=== PATIENT | male | born 1980 | race Caucasian/White ===

== ENCOUNTER 2023-04-01 18:31 | Emergency (ER) | payer BC, SELFPAY ==
[2023-04-01] VITALS (29 sets, daily range): BP systolic 128; BP diastolic 89; PULSE 76–115; RESP 7–24; TEMP 36.6; O2SAT 85–100; BMI 26.5
--- NOTE | 2023-04-01 18:59 | ECG_ITS ---
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
--- NOTE | 2023-04-01 19:01 | ED.GENADUL1 ---
Documented by User: Malena Bettencourt 04/01/23 22:04 HPI - General Adult General Chief complaint: Overdose Stated complaint: WITHDRAWAL, ANXIETY Time Seen by Provider: 04/01/23 18:59 Source: patient Source information: patient Mode of arrival: walk-in Limitations: no limitations History of Present Illness HPI narrative: 42 year old male presents to the ED for substance abuse. He reports using cocaine and OxyContin today; he reported snorting OxyContin in the parking lot prior to coming inside. His brother brought him in today. He does drink alcohol; denies use today. He has hx substance abuse. States he was at a drug [facility] alcohol treatment center 2 weeks ago; he was sober for 3 days. He reports feeling anxious at this time. Reports chest pain at this time. Denies fever, SOB, emesis, diarrhea, dizziness. Rates his pain 4/10 at this time. Location: Reports chest; Denies head, neck, back or abdomen Related Data Allergies Allergy/AdvReac Type Severity Reaction Status Date / Time No Known Drug Allergies Allergy Verified 04/01/23 18:56 Review of Systems ROS Constitutional Denies: fever, chills or fatigue Ears, nose, mouth, and throat Denies: throat pain or neck pain Cardiovascular Reports: chest pain; Denies: lightheadedness Respiratory Denies: shortness of breath or cough Gastrointestinal Denies: abdominal pain, nausea, vomiting or diarrhea Musculoskeletal Denies: back pain or neck pain Integumentary/Breast Denies: rash Neurological Denies: headache, weakness in extremities, dizziness or slurred speech Psychiatric Reports: anxiety; Denies: suicidal ideation or homicidal ideation PFSH PFS Social History Smoking status: Current every day smoker Exam Constitutional Vital Signs - 24 hr 04/01/23 18:51 04/01/23 19:10 04/01/23 19:17 Temperature 98 F Pulse Rate Pulse Rate [Monitor] 115 H Respiratory Rate 24 Blood Pressure Blood Pressure [Right Arm] 128/89 H Pulse Oximetry 99 96 95 Oxygen Delivery Method Room Air Nasal Cannula Oxygen Delivery Flow Rate 2 04/01/23 19:20 04/01/23 19:30 04/01/23 19:40 Temperature Pulse Rate 86 78 95 H Pulse Rate [Monitor] Respiratory Rate 22 17 Blood Pressure Blood Pressure [Right Arm] Pulse Oximetry 96 91 L 96 Oxygen Delivery Method Oxygen Delivery Flow Rate 04/01/23 19:50 04/01/23 20:00 04/01/23 20:12 Temperature Pulse Rate 92 H 86 88 Pulse Rate [Monitor] Respiratory Rate 19 Blood Pressure Blood Pressure [Right Arm] Pulse Oximetry 97 100 Oxygen Delivery Method Oxygen Delivery Flow Rate 04/01/23 20:43 04/01/23 20:50 04/01/23 21:00 Temperature Pulse Rate 79 78 78 Pulse Rate [Monitor] Respiratory Rate 22 12 10 L Blood Pressure Blood Pressure [Right Arm] Pulse Oximetry 92 L 92 L 89 L Oxygen Delivery Method Oxygen Delivery Flow Rate 04/01/23 21:10 04/01/23 21:20 04/01/23 21:30 Temperature Pulse Rate 78 76 85 Pulse Rate [Monitor] Respiratory Rate 13 23 21 Blood Pressure Blood Pressure [Right Arm] Pulse Oximetry 85 L 96 Oxygen Delivery Method Oxygen Delivery Flow Rate 04/01/23 21:40 04/01/23 21:50 04/01/23 22:00 Temperature Pulse Rate 86 84 83 Pulse Rate [Monitor] Respiratory Rate 18 14 14 Blood Pressure Blood Pressure [Right Arm] Pulse Oximetry 88 L 92 L 92 L Oxygen Delivery Method Oxygen Delivery Flow Rate 04/01/23 22:10 04/01/23 22:20 04/01/23 22:30 Temperature Pulse Rate 82 82 83 Pulse Rate [Monitor] Respiratory Rate 14 16 18 Blood Pressure Blood Pressure [Right Arm] Pulse Oximetry 91 L 92 L 92 L Oxygen Delivery Method Oxygen Delivery Flow Rate 04/01/23 22:40 04/01/23 22:50 04/01/23 23:00 Temperature Pulse Rate 85 87 88 Pulse Rate [Monitor] Respiratory Rate 14 22 17 Blood Pressure Blood Pressure [Right Arm] Pulse Oximetry 89 L 90 L 90 L Oxygen Delivery Method Oxygen Delivery Flow Rate 04/01/23 23:10 04/01/23 23:20 04/01/23 23:30 Temperature Pulse Rate 91 H 86 85 Pulse Rate [Monitor] Respiratory Rate 12 11 L 7 L Blood Pressure Blood Pressure [Right Arm] Pulse Oximetry Oxygen Delivery Method Oxygen Delivery Flow Rate 04/01/23 23:40 04/01/23 23:50 04/02/23 00:00 Temperature Pulse Rate 86 86 88 Pulse Rate [Monitor] Respiratory Rate 17 11 L 10 L Blood Pressure Blood Pressure [Right Arm] Pulse Oximetry Oxygen Delivery Method Oxygen Delivery Flow Rate 04/02/23 00:10 06/23/23 00:20 04/02/23 00:30 Temperature Pulse Rate 88 89 96 H Pulse Rate [Monitor] Respiratory Rate 10 L 18 11 L Blood Pressure Blood Pressure [Right Arm] Pulse Oximetry Oxygen Delivery Method Oxygen Delivery Flow Rate 04/02/23 00:31 04/02/23 00:31 04/02/23 06:35 Temperature Pulse Rate 75 90 Pulse Rate [Monitor] Respiratory Rate 14 10 L Blood Pressure 120/59 H Blood Pressure [Right Arm] Pulse Oximetry 94 L 95 96 Oxygen Delivery Method Room Air Oxygen Delivery Flow Rate Common normals: oriented x3 and alert General appearance: cooperative, anxious, disheveled and diaphoretic Orientation/consciousness: Yes awake Eye Common normals: PERRL, EOMs intact bilaterally, conjunctivae normal and no scleral icterus Neck & C-Spine Common normals: supple General: normal visual inspection and trachea midline Chest Common normals: inspection of chest normal Chest: symmetrical chest wall rise Respiratory Common normals: normal respiratory effort, no use of accessory muscles and clear to auscultation bilaterally Effort & inspection: symmetric chest movement and tachypneic; no respiratory distress, no pursed lip breathing, no grunting, no stridor and no audible wheezes Cardio Common normals: regular rhythm Rate: tachycardic Extremity Common normals: full ROM and normal capillary refill Neuro Common normals: oriented x3 and CN's II-XII intact bilaterally Sensorium/orientation: awake and alert Gait (neuro): normal gait Psych Common normals: cooperative, denies hallucinations, denies homicidal ideation and denies suicidal ideation Appearance: unkempt and disheveled Speech: rapid Mood and affect: anxious Thought process: not confused Course Reevaluation(s) Reevaluation #1: The patient became unresponsive with snoring respirations. His oxygen saturation began to drop into the 80s on NRB mask. Narcan 1 mg IV was ordered and given. The patient became alert and oriented. His oxygen saturation improved to 95% on room air; he declined to wear the oxygen at that time. Time: 19:18 Reevaluation #2: Pt sitting up in bed, rocking back and forth, pulling at hair. Tremors noted. Ativan ordered. Time: 20:23 Vital Signs Vital signs: Vital Signs Temperature 98 F 04/01/23 18:51 Pulse Rate 115 H 04/01/23 18:51 Respiratory Rate 24 04/01/23 18:51 Blood Pressure 128/89 H 04/01/23 18:51 Pulse Oximetry 99 04/01/23 18:51 Oxygen Delivery Method Room Air 04/01/23 18:51 Temperature 98 F 04/01/23 18:51 Pulse Rate 90 04/02/23 00:31 Respiratory Rate 10 L 04/02/23 00:31 Blood Pressure 120/59 H 04/02/23 00:31 Pulse Oximetry 96 04/02/23 06:35 Oxygen Delivery Method Room Air 04/02/23 06:35 Oxygen Delivery Flow Rate 2 04/01/23 19:10 Medical Decision Making MDM Narrative Medical decision making narrative: He tested positive for oxycodone and cocaine. The patient will continued to be closely monitored in the ED. He was given Narcan x2 and Ativan x2. Care was resumed to Dr. Blevins. See her dictation for further evaluation and treatment. Lab Data Lab results reviewed: Yes I reviewed the patient's lab results Labs: Lab Results 04/01/23 04/01/23 Range/Units 19:15 19:30 WBC 10.4 (4.0-11.0) 10^3/uL RBC 5.34 (4.70-6.10) 10^6/uL Hgb 15.1 (14.0-18.0) g/dL Hct 45.9 (42.0-54.0) % MCV 86.0 (80.0-94.0) fL MCH 28.3 (25.9-34.0) pg MCHC 32.9 (29.9-35.2) g/dL RDW 13.7 (11.0-15.0) % Plt Count 381 (150-450) 10^3/uL MPV 10.1 (9.5-13.5) fL Neut % (Auto) 46.6 (43.0-75.0) % Lymph % (Auto) 29.2 (20.5-60.0) % Jerome % (Auto) 11.2 (1.7-12.0) % Eos % (Auto) 11.0 H (0.9-7.0) % Baso % (Auto) 1.0 (0.2-2.0) % Neut # (Auto) 4.9 (1.4-6.5) 10^3/uL Lymph # (Auto) 3.1 (1.2-3.8) 10^3/uL Jerome # (Auto) 1.2 H (0.3-0.8) 10^3/uL Eos # (Auto) 1.2 H (0.0-0.7) 10^3/uL Baso # (Auto) 0.1 (0.0-0.1) 10^3/uL Abs Immat Gran (auto) 0.10 H (0.00-0.03) 10^3/uL Imm/Tot Granulo (auto) 1.0 H (0.0-0.5) % Sodium 139 (136-145) mmol/L Potassium 4.9 (3.5-5.1) mmol/L Chloride 103 (98-107) mmol/L Carbon Dioxide 25.2 (21.0-32.0) mmol/L Anion Gap 15.7 BUN 24.0 H (7.0-18.0) mg/dL Creatinine 1.66 H (0.70-1.30) mg/dL Est GFR ( Amer) 56 L (>=60) Est GFR (Non-Af Amer) 46 L (>=60) BUN/Creatinine Ratio 14.5 Glucose 58 L (74-106) mg/dL Calcium 9.9 (8.5-10.1) mg/dL Total Bilirubin 0.6 (0.2-1.0) mg/dL AST 39 H (15-37) U/L ALT 46 (16-63) U/L Alkaline Phosphatase 76 (46-116) U/L Troponin I High Sens 12.1 (4.0-76.1) pg/mL Total Protein 8.2 (6.4-8.2) g/dL Albumin 3.9 (3.4-5.0) g/dL Globulin 4.3 g/dL Albumin/Globulin Ratio 0.9 Urine Color Yellow (YELLOW) Urine Clarity Clear (CLEAR) Urine pH 5.5 (5.0-9.0) Ur Specific Rick[place]all >=1.030 A (1.005-1.025) Urine Protein Trace (NEG/TRACE) mg/dL Urine Glucose (UA) Negative (NEGATIVE) mg/dL Urine Ketones Negative (NEGATIVE) mg/dL Urine Occult Blood Negative (NEGATIVE) Urine Nitrite Negative (NEGATIVE) Urine Bilirubin Negative (NEGATIVE) Urine Urobilinogen 0.2 (0.2-1.0) EU/dL Ur Leukocyte Esterase Negative (NEGATIVE) Urine Opiates Screen Negative (NEGATIVE) Ur Buprenorphine Scrn Negative (NEGATIVE) Ur Oxycodone Screen Positive A (NEGATIVE) Urine Methadone Screen Negative (NEGATIVE) Ur Propoxyphene Screen Negative (NEGATIVE) Ur Barbiturates Screen Negative (NEGATIVE) U Tricyclic Antidepress Negative (NEGATIVE) Ur Phencyclidine Scrn Negative (NEGATIVE) Ur Amphetamines Screen Negative (NEGATIVE) U Methamphetamines Scrn Negative (NEGATIVE) U Benzodiazepines Scrn Negative (NEGATIVE) Urine Cocaine Screen Positive A (NEGATIVE) U Cannabinoids Screen Negative (NEGATIVE) Ethanol Quant <3 mg/dL Imaging Data Chest x-ray: Radiologist's impression: Procedure:? XR chest 1V ? XR chest 1V 04/01/2023 7:53 PM EDT ? CLINICAL INDICATION: Overdose ? COMPARISON: None. ? TECHNIQUE: Portable semiupright AP view of the chest. ? FINDINGS: ? There are no tubes or implants noted. ? The cardiomediastinal silhouette and pulmonary vasculature are within normal limits. No focal parenchymal opacities. No pneumothorax or pleural effusion. No displaced rib fractures. Osseous structures demonstrate degenerative changes. Soft tissues are grossly normal. ? IMPRESSION: ? No acute cardiopulmonary abnormality. ECG Data Attestation: ?I have reviewed the pertinent ECG results. (The EKG was reviewed by the attending physician. It showed sinus rhythm at a rate of 85. No acute ST segment changes. [place] interval 160 ms. QTc 396 ms.) Interpretation: Intervals? [place]? Rate: ? 85 ? P:? 43 [place]: ? 160? QRS:? 54 QRSD: ? 94 ? T:? 39 QT: ? 354? QTc:? 396? Interpretive Statements 1100 Sinus rhythm 6220 Possible left atrial enlargement 9130 ? borderline ECG? No previous ECG available for comparison Discharge Plan Discharge Chief Complaint: Overdose Clinical Impression: Polysubstance abuse, Drug overdose Referrals: Physician,Non-Staff, [Primary Care Provider] - 1 week Documented by User: Emely Blevins MD 04/02/23 06:49 HPI - General Adult General Chief complaint: Overdose Stated complaint: WITHDRAWAL, ANXIETY Time Seen by Provider: 04/01/23 18:59 Related Data Allergies Allergy/AdvReac Type Severity Reaction Status Date / Time No Known Drug Allergies Allergy Verified 04/01/23 18:56 PFSH PFSH Social History Smoking status: Current every day smoker Exam Constitutional Vital Signs - 24 hr 04/01/23 18:51 04/01/23 19:10 04/01/23 19:17 Temperature 98 F Pulse Rate Pulse Rate [Monitor] 115 H Respiratory Rate 24 Blood Pressure Blood Pressure [Right Arm] 128/89 H Pulse Oximetry 99 96 95 Oxygen Delivery Method Room Air Nasal Cannula Oxygen Delivery Flow Rate 2 04/01/23 19:20 04/01/23 19:30 04/01/23 19:40 Temperature Pulse Rate 86 78 95 H Pulse Rate [Monitor] Respiratory Rate 22 17 Blood Pressure Blood Pressure [Right Arm] Pulse Oximetry 96 91 L 96 Oxygen Delivery Method Oxygen Delivery Flow Rate 04/01/23 19:50 04/01/23 20:00 04/01/23 20:12 Temperature Pulse Rate 92 H 86 88 Pulse Rate [Monitor] Respiratory Rate 19 Blood Pressure Blood Pressure [Right Arm] Pulse Oximetry 97 100 Oxygen Delivery Method Oxygen Delivery Flow Rate 04/01/23 20:43 04/01/23 20:50 04/01/23 21:00 Temperature Pulse Rate 79 78 78 Pulse Rate [Monitor] Respiratory Rate 22 12 10 L Blood Pressure Blood Pressure [Right Arm] Pulse Oximetry 92 L 92 L 89 L Oxygen Delivery Method Oxygen Delivery Flow Rate 04/01/23 21:10 04/01/23 21:20 04/01/23 21:30 Temperature Pulse Rate 78 76 85 Pulse Rate [Monitor] Respiratory Rate 13 23 21 Blood Pressure Blood Pressure [Right Arm] Pulse Oximetry 85 L 96 Oxygen Delivery Method Oxygen Delivery Flow Rate 04/01/23 21:40 04/01/23 21:50 04/01/23 22:00 Temperature Pulse Rate 86 84 83 Pulse Rate [Monitor] Respiratory Rate 18 14 14 Blood Pressure Blood Pressure [Right Arm] Pulse Oximetry 88 L 92 L 92 L Oxygen Delivery Method Oxygen Delivery Flow Rate 04/01/23 22:10 04/01/23 22:20 04/01/23 22:30 Temperature Pulse Rate 82 82 83 Pulse Rate [Monitor] Respiratory Rate 14 16 18 Blood Pressure Blood Pressure [Right Arm] Pulse Oximetry 91 L 92 L 92 L Oxygen Delivery Method Oxygen Delivery Flow Rate 04/01/23 22:40 04/01/23 22:50 04/01/23 23:00 Temperature Pulse Rate 85 87 88 Pulse Rate [Monitor] Respiratory Rate 14 22 17 Blood Pressure Blood Pressure [Right Arm] Pulse Oximetry 89 L 90 L 90 L Oxygen Delivery Method Oxygen Delivery Flow Rate 04/01/23 23:10 04/01/23 23:20 04/01/23 23:30 Temperature Pulse Rate 91 H 86 85 Pulse Rate [Monitor] Respiratory Rate 12 11 L 7 L Blood Pressure Blood Pressure [Right Arm] Pulse Oximetry Oxygen Delivery Method Oxygen Delivery Flow Rate 04/01/23 23:40 04/01/23 23:50 04/02/23 00:00 Temperature Pulse Rate 86 86 88 Pulse Rate [Monitor] Respiratory Rate 17 11 L 10 L Blood Pressure Blood Pressure [Right Arm] Pulse Oximetry Oxygen Delivery Method Oxygen Delivery Flow Rate 04/02/23 00:10 04/02/23 00:20 04/02/23 00:30 Temperature Pulse Rate 88 89 96 H Pulse Rate [Monitor] Respiratory Rate 10 L 18 11 L Blood Pressure Blood Pressure [Right Arm] Pulse Oximetry Oxygen Delivery Method Oxygen Delivery Flow Rate 04/02/23 00:31 04/02/23 00:31 04/02/23 06:35 Temperature Pulse Rate 75 90 Pulse Rate [Monitor] Respiratory Rate 14 10 L Blood Pressure 120/59 H Blood Pressure [Right Arm] Pulse Oximetry 94 L 95 96 Oxygen Delivery Method Room Air Oxygen Delivery Flow Rate Course Vital Signs Vital signs: Vital Signs Temperature 98 F 04/01/23 18:51 Pulse Rate 115 H 04/01/23 18:51 Respiratory Rate 24 04/01/23 18:51 Blood Pressure 128/89 H 04/01/23 18:51 Pulse Oximetry 99 04/01/23 18:51 Oxygen Delivery Method Room Air 04/01/23 18:51 Temperature 98 F 04/01/23 18:51 Pulse Rate 90 04/02/23 00:31 Respiratory Rate 10 L 04/02/23 00:31 Blood Pressure 120/59 H 04/02/23 00:31 Pulse Oximetry 96 04/02/23 06:35 Oxygen Delivery Method Room Air 04/02/23 06:35 Oxygen Delivery Flow Rate 2 04/01/23 19:10 Medical Decision Making MDM Narrative Medical decision making narrative: He tested positive for oxycodone and cocaine. The patient will continued to be closely monitored in the ED. He was given Narcan x2 and Ativan x2. Care was resumed to Dr. Blevins. See her dictation for further evaluation and treatment. Patient was seen and evaluated in conjunction with the physician phlebotomist lab assistant. He was brought to the emergency department by his family for evaluation of substance abuse. He was recently in a detox facility locally for 2 weeks but was only clean from drugs for 3 days after discharge. The patient's fianc? gives additional history that he was also formally in a detox center in [place]. Prior to going to detox unit in [place] he was only taking oral medications and occasionally snorting medicattions but after being released he has been using IV drugs. The patient was noted to come to the emergency department registration earlier today and then leave to go use drugs while his brother drove him around in the parking lot. He has admitted several times that he wants help. His fianc?e appears to be very supportive. The fianc?e did speak to [facility] earlier today and they have a bed for him, we did confirm this and spoke to the intake nurse at this facility. The patient has had fluctuating levels of consciousness including becoming poorly responsive with agonal respirations and requiring Narcan and then coming extremely agitated rocking back and forth pulling at his hair becoming diaphoretic and requiring Ativan. After his last dose of Ativan his symptoms recurred and he was medicated with IM Geodon the clinical improvement. The detox center was unable to admit this patient between the hours of 11 PM and 6 a and T was maintained in the emergency department until he was able to be transferred. He will be discharged when awake and alert with the plan being for him to report to [facility] for admission. Lab Data Labs: Lab Results 04/01/23 04/01/23 Range/Units 19:15 19:30 WBC 10.4 (4.0-11.0) 10^3/uL RBC 5.34 (4.70-6.10) 10^6/uL Hgb 15.1 (14.0-18.0) g/dL Hct 45.9 (42.0-54.0) % MCV 86.0 (80.0-94.0) fL MCH 28.3 (25.9-34.0) pg MCHC 32.9 (29.9-35.2) g/dL RDW 13.7 (11.0-15.0) % Plt Count 381 (150-450) 10^3/uL MPV 10.1 (9.5-13.5) fL Neut % (Auto) 46.6 (43.0-75.0) % Lymph % (Auto) 29.2 (20.5-60.0) % Jerome % (Auto) 11.2 (1.7-12.0) % Eos % (Auto) 11.0 H (0.9-7.0) % Baso % (Auto) 1.0 (0.2-2.0) % Neut # (Auto) 4.9 (1.4-6.5) 10^3/uL Lymph # (Auto) 3.1 (1.2-3.8) 10^3/uL Jerome # (Auto) 1.2 H (0.3-0.8) 10^3/uL Eos # (Auto) 1.2 H (0.0-0.7) 10^3/uL Baso # (Auto) 0.1 (0.0-0.1) 10^3/uL Abs Immat Gran (auto) 0.10 H (0.00-0.03) 10^3/uL Imm/Tot Granulo (auto) 1.0 H (0.0-0.5) % Sodium 139 (136-145) mmol/L Potassium 4.9 (3.5-5.1) mmol/L Chloride 103 (98-107) mmol/L Carbon Dioxide 25.2 (21.0-32.0) mmol/L Anion Gap 15.7 BUN 24.0 H (7.0-18.0) mg/dL Creatinine 1.66 H (0.70-1.30) mg/dL Est GFR ( Amer) 56 L (>=60) Est GFR (Non-Af Amer) 46 L (>=60) BUN/Creatinine Ratio 14.5 Glucose 58 L (74-106) mg/dL Calcium 9.9 (8.5-10.1) mg/dL Total Bilirubin 0.6 (0.2-1.0) mg/dL AST 39 H (15-37) U/L ALT 46 (16-63) U/L Alkaline Phosphatase 76 (46-116) U/L Troponin I High Sens 12.1 (4.0-76.1) pg/mL Total Protein 8.2 (6.4-8.2) g/dL Albumin 3.9 (3.4-5.0) g/dL Globulin 4.3 g/dL Albumin/Globulin Ratio 0.9 Urine Color Yellow (YELLOW) Urine Clarity Clear (CLEAR) Urine pH 5.5 (5.0-9.0) Ur Specific [place] >=1.030 A (1.005-1.025) Urine Protein Trace (NEG/TRACE) mg/dL Urine Glucose (UA) Negative (NEGATIVE) mg/dL Urine Ketones Negative (NEGATIVE) mg/dL Urine Occult Blood Negative (NEGATIVE) Urine Nitrite Negative (NEGATIVE) Urine Bilirubin Negative (NEGATIVE) Urine Urobilinogen 0.2 (0.2-1.0) EU/dL Ur Leukocyte Esterase Negative (NEGATIVE) Urine Opiates Screen Negative (NEGATIVE) Ur Buprenorphine Scrn Negative (NEGATIVE) Ur Oxycodone Screen Positive A (NEGATIVE) Urine Methadone Screen Negative (NEGATIVE) Ur Propoxyphene Screen Negative (NEGATIVE) Ur Barbiturates Screen Negative (NEGATIVE) U Tricyclic Antidepress Negative (NEGATIVE) Ur Phencyclidine Scrn Negative (NEGATIVE) Ur Amphetamines Screen Negative (NEGATIVE) U Methamphetamines Scrn Negative (NEGATIVE) U Benzodiazepines Scrn Negative (NEGATIVE) Urine Cocaine Screen Positive A (NEGATIVE) U Cannabinoids Screen Negative (NEGATIVE) Ethanol Quant <3 mg/dL Critical Care Time Critical Care Time Total Critical Care Time: 60 Discharge Plan Discharge Chief Complaint: Overdose Clinical Impression: Polysubstance abuse, Drug overdose Referrals: Physician,Non-Staff, MD [Primary Care Provider] - 1 week
[2023-04-01] MEDS: 0.9 % SODIUM CHLORIDE 1,000 ML 999 ML IV (19:20)
[2023-04-01] MEDS: LORAZEPAM 2 MG/ML 1 ML VIAL IV (19:20)
[2023-04-01] MEDS: NALOXONE HCL 2 MG/2 ML SYRINGE 1 MG IV ×2 (19:30→21:15)
[2023-04-01 19:34] LABS: Basophils Absolute Auto 0.1 10^3/uL (0.0-0.1); Eosinophils Absolute Auto 1.2 10^3/uL (0.0-0.7); Hematocrit 45.9 % (42.0-54.0); Hemoglobin 15.1 g/dL (14.0-18.0); Lymphocytes Absolute Auto 3.1 10^3/uL (1.2-3.8); Lymphocytes Percent Auto 29.2 % (20.5-60.0); Mean Corpuscular HGB Conc 32.9 g/dL (29.9-35.2); Mean Corpuscular Hemoglobin 28.3 pg (25.9-34.0); Mean Platelet Volume 10.1 fL (9.5-13.5); Monocytes Absolute Auto 1.2 10^3/uL (0.3-0.8); Monocytes Percent Auto 11.2 % (1.7-12.0); Neutrophils Absolute Auto 4.9 10^3/uL (1.4-6.5); Neutrophils Percent Auto 46.6 % (43.0-75.0); Platelet Count 381 10^3/uL (150-450); Red Blood Count 5.34 10^6/uL (4.70-6.10); Red Cell Distribution Width 13.7 % (11.0-15.0); White Blood Count 10.4 10^3/uL (4.0-11.0)
--- NOTE | 2023-04-01 19:36 | XR_ITS ---
[facility] [place] [id number] Patient Name: PHILIPP BROWN MRN: [id number] date: 1980 Sex: M Assigned Patient Location: ER Current Patient Location: ER Accession/Order Number: [id number] Exam Date: 04/01/2023 19:53 Report Date: 04/01/2023 20:58 At the request of: FREEMAN MARCELO Procedure: XR chest 1V XR chest 1V 04/01/2023 7:53 PM EDT CLINICAL INDICATION: Overdose COMPARISON: None. TECHNIQUE: Portable semiupright AP view of the chest. FINDINGS: There are no tubes or implants noted. The cardiomediastinal silhouette and pulmonary vasculature are within normal limits. No focal parenchymal opacities. No pneumothorax or pleural effusion. No displaced rib fractures. Osseous structures demonstrate degenerative changes. Soft tissues are grossly normal. IMPRESSION: No acute cardiopulmonary abnormality. Electronically authenticated by: MINNIE PENN Date: 04/01/2023 20:58
[2023-04-01 19:44] LABS: Bilirubin Urine NEGATIVE (NEGATIVE); Blood Urine NEGATIVE (NEGATIVE); Clarity Urine CLEAR (CLEAR); Color Urine YELLOW (YELLOW); Glucose Urine UA NEGATIVE (NEGATIVE); Ketones Urine NEGATIVE (NEGATIVE); Leukocyte Esterase Urine NEGATIVE (NEGATIVE); Nitrite Urine NEGATIVE (NEGATIVE); Protein Urine TRACE mg/dL (NEG/TRACE); Specific Gravity Urine >=1.030 (1.005-1.025); Urobilinogen Urine 0.2 EU/dL (0.2-1.0); pH Urine 5.5 (5.0-9.0)
[2023-04-01 19:48] LABS: Urine Microscopic Indicated NO
[2023-04-01 19:49] LABS: Anion Gap 15.7
--- NOTE | 2023-04-01 19:50 | PC.NURSE ---
patient was dropped off to ED doors for overdose. patient states he was discharged from [facility] two weeks ago after being clean for 3 days. comes in today hoping to return back to rehab facility. patient arrived at [facility] facility and states that he told his brother her was going to snort something really quick and to take a drive around the parking lot. patient then came in to be admitted for overdose immediately afterwards. able to have a steady gait back to ed room 4. once in room patient started tweaking, lots of jerking movements, involuntary. patient was very compliant, admits to what he did.patient sweating profusely, unable to get ekg at this time due to the amount of perspiration. iv initated and wrapped in chauncey Gómez to override iv fluids and Ativan 1mg verbal order from physician assistant health educator read back. patients eyes frequently rolling into back of his head with seizure like jerking movements. patient still able to answer when name is called. ativan given at 1910. 0 patient has snoring respirations, eyes closed, uneven chest rise. 2l o2 initiated via facemask at this time. patient saturating at 96%. 1919 ekg obtained and given to physician, patient no longer sweating decreased.
[2023-04-01 19:51] LABS: Alanine Aminotransferase 46 U/L (16-63); Albumin Globulin Ratio 0.9; Albumin Level 3.9 g/dL (3.4-5.0); Alkaline Phosphatase 76 U/L (46-116); Aspartate Amino Transferase 39 U/L (15-37); BUN Creatinine Ratio 14.5; Bilirubin Total 0.6 mg/dL (0.2-1.0); Calcium 9.9 mg/dL (8.5-10.1); Carbon Dioxide 25.2 mmol/L (21.0-32.0); Chloride 103 mmol/L (98-107); Estimated GFR (African America 56 (>=60); Estimated GFR (Non-African Ame 46 (>=60); Ethanol <3 mg/dL; Globulin 4.3 g/dL; Glucose 58 mg/dL (74-106); Potassium 4.9 mmol/L (3.5-5.1); Sodium 139 mmol/L (136-145); Total Protein 8.2 g/dL (6.4-8.2); Troponin I High Sensitivity 12.1 pg/mL (4.0-76.1)
[2023-04-01 19:55] LABS: Amphetamine Screen Urine NEGATIVE (NEGATIVE); Barbiturates Screen Urine NEGATIVE (NEGATIVE); Benzodiazepines Screen Urine NEGATIVE (NEGATIVE); Buprenorphine Screen Urine NEGATIVE (NEGATIVE); Cannabinoid Screen Urine NEGATIVE (NEGATIVE); Cocaine Screen Urine POSITIVE (NEGATIVE); Methadone Screen Urine NEGATIVE (NEGATIVE); Methamphetamines Screen Urine NEGATIVE (NEGATIVE); Opiate Screen Urine NEGATIVE (NEGATIVE); Oxycodone Screen Urine POSITIVE (NEGATIVE); Phencyclidine Screen Urine NEGATIVE (NEGATIVE); Tricyclic Antidepressant Urine NEGATIVE (NEGATIVE)
--- NOTE | 2023-04-01 20:18 | PC.NURSE ---
1mg narcan given ivpush at 1930. 193 patient awake. respirations imporved. no longer snoring respiration. patient open his eyes, took off o2 mask. patient oriented x4. notified patient that he was given narcan. patient responds noooo he did not want narcan. patients fiance brought back. physician administrative support assistant at bedside.
[2023-04-01] MEDS: LORAZEPAM 2 MG/ML 1 ML VIAL 1 MG IV (20:28)
--- NOTE | 2023-04-01 21:18 | PC.NURSE ---
patient snoring, respiration even and shallow. o2 saturation 91-87% on room air. patient given 1mg narcan iv push per physician medical services assistant. patient o2 saturation improved to 97% on room air. patient awoke, looked around room and laid back down. vital signs within normal limits
[2023-04-02] VITALS: PULSE 88; RESP 10
[2023-04-02 00:10] VITALS: PULSE 88; RESP 10
[2023-04-02 00:20] VITALS: PULSE 89; RESP 18
[2023-04-02 00:30] VITALS: PULSE 96; RESP 11
[2023-04-02 00:31] VITALS: BP 120/59; PULSE 75; PULSE 87; PULSE 90; RESP 10; RESP 14; RESP 19; O2SAT 93; O2SAT 94; O2SAT 95
[2023-04-02] MEDS: LORAZEPAM 1 MG TABLET 2 MG PO (01:00)
[2023-04-02] MEDS: 0.9 % SODIUM CHLORIDE 1,000 ML 150 ML IV (01:22)
[2023-04-02] MEDS: ZIPRASIDONE MESYLATE 20 MG/ML VIAL IM (02:00)
--- NOTE | 2023-04-02 02:04 | PC.NURSE ---
patient up, moving toward the edge of the bed, does not seem to be inn control of movements. nodding out ever 15 seconds. patient will respond to name and follow directions but nodds out shortly after. physician notified that po ativan does not seem to have affected patients condition. physician ordered im geodone 20mg. medication overoad by supervisor painting and given at this time. security at bedside for patient safety as patietn has come close to falling out of bed. seizure pads still since admission
[2023-04-02 06:35] VITALS: O2SAT 96
--- NOTE | 2023-04-02 09:45 | ED.GENADUL1 ---
HPI - General Adult General Chief complaint: Overdose Stated complaint: WITHDRAWAL, ANXIETY Time Seen by Provider: 04/01/23 18:59 Source: patient Source information: patient Mode of arrival: walk-in Limitations: no limitations History of Present Illness HPI narrative: please see previous providers note for full H & P. Related Data Allergies Allergy/AdvReac Type Severity Reaction Status Date / Time No Known Drug Allergies Allergy Verified 04/01/23 18:56 PFSH PFSH Social History Smoking status: Current every day smoker Exam Constitutional Vital Signs - 24 hr 04/01/23 18:51 04/01/23 19:10 04/01/23 19:17 Temperature 98 F Pulse Rate Pulse Rate [Monitor] 115 H Respiratory Rate 24 Blood Pressure Blood Pressure [Right Arm] 128/89 H Pulse Oximetry 99 96 95 Oxygen Delivery Method Room Air Nasal Cannula Oxygen Delivery Flow Rate 2 04/01/23 19:20 04/01/23 19:30 04/01/23 19:40 Temperature Pulse Rate 86 78 95 H Pulse Rate [Monitor] Respiratory Rate 22 17 Blood Pressure Blood Pressure [Right Arm] Pulse Oximetry 96 91 L 96 Oxygen Delivery Method Oxygen Delivery Flow Rate 04/01/23 19:50 04/01/23 20:00 04/01/23 20:12 Temperature Pulse Rate 92 H 86 88 Pulse Rate [Monitor] Respiratory Rate 19 Blood Pressure Blood Pressure [Right Arm] Pulse Oximetry 97 100 Oxygen Delivery Method Oxygen Delivery Flow Rate 04/01/23 20:43 04/01/23 20:50 04/01/23 21:00 Temperature Pulse Rate 79 78 78 Pulse Rate [Monitor] Respiratory Rate 22 12 10 L Blood Pressure Blood Pressure [Right Arm] Pulse Oximetry 92 L 92 L 89 L Oxygen Delivery Method Oxygen Delivery Flow Rate 04/01/23 21:10 04/01/23 21:20 04/01/23 21:30 Temperature Pulse Rate 78 76 85 Pulse Rate [Monitor] Respiratory Rate 13 23 21 Blood Pressure Blood Pressure [Right Arm] Pulse Oximetry 85 L 96 Oxygen Delivery Method Oxygen Delivery Flow Rate 04/01/23 21:40 04/01/23 21:50 04/01/23 22:00 Temperature Pulse Rate 86 84 83 Pulse Rate [Monitor] Respiratory Rate 18 14 14 Blood Pressure Blood Pressure [Right Arm] Pulse Oximetry 88 L 92 L 92 L Oxygen Delivery Method Oxygen Delivery Flow Rate 04/01/23 22:10 04/01/23 22:20 04/01/23 22:30 Temperature Pulse Rate 82 82 83 Pulse Rate [Monitor] Respiratory Rate 14 16 18 Blood Pressure Blood Pressure [Right Arm] Pulse Oximetry 91 L 92 L 92 L Oxygen Delivery Method Oxygen Delivery Flow Rate 04/01/23 22:40 04/01/23 22:50 04/01/23 23:00 Temperature Pulse Rate 85 87 88 Pulse Rate [Monitor] Respiratory Rate 14 22 17 Blood Pressure Blood Pressure [Right Arm] Pulse Oximetry 89 L 90 L 90 L Oxygen Delivery Method Oxygen Delivery Flow Rate 04/01/23 23:10 04/01/23 23:20 04/01/23 23:30 Temperature Pulse Rate 91 H 86 85 Pulse Rate [Monitor] Respiratory Rate 12 11 L 7 L Blood Pressure Blood Pressure [Right Arm] Pulse Oximetry Oxygen Delivery Method Oxygen Delivery Flow Rate 04/01/23 23:40 04/01/23 23:50 04/02/23 00:00 Temperature Pulse Rate 86 86 88 Pulse Rate [Monitor] Respiratory Rate 17 11 L 10 L Blood Pressure Blood Pressure [Right Arm] Pulse Oximetry Oxygen Delivery Method Oxygen Delivery Flow Rate 04/02/23 00:10 04/02/23 00:20 04/02/23 00:30 Temperature Pulse Rate 88 89 96 H Pulse Rate [Monitor] Respiratory Rate 10 L 18 11 L Blood Pressure Blood Pressure [Right Arm] Pulse Oximetry Oxygen Delivery Method Oxygen Delivery Flow Rate 04/02/23 00:31 04/02/23 00:31 04/02/23 06:35 Temperature Pulse Rate 75 90 Pulse Rate [Monitor] Respiratory Rate 14 10 L Blood Pressure 120/59 H Blood Pressure [Right Arm] Pulse Oximetry 94 L 95 96 Oxygen Delivery Method Room Air Oxygen Delivery Flow Rate 04/02/23 00:31 04/02/23 00:31 Temperature Pulse Rate 87 Pulse Rate [Monitor] Respiratory Rate 19 Blood Pressure 120/59 H 120/59 H Blood Pressure [Right Arm] Pulse Oximetry 93 L Oxygen Delivery Method Oxygen Delivery Flow Rate Course Vital Signs Vital signs: Vital Signs Temperature 98 F 04/01/23 18:51 Pulse Rate 115 H 04/01/23 18:51 Respiratory Rate 24 04/01/23 18:51 Blood Pressure 128/89 H 04/01/23 18:51 Pulse Oximetry 99 04/01/23 18:51 Oxygen Delivery Method Room Air 04/01/23 18:51 Temperature 98 F 04/01/23 18:51 Pulse Rate 87 04/02/23 00:31 Respiratory Rate 19 04/02/23 00:31 Blood Pressure 120/59 H 04/02/23 00:31 Pulse Oximetry 96 04/02/23 06:35 Oxygen Delivery Method Room Air 04/02/23 06:35 Oxygen Delivery Flow Rate 2 04/01/23 19:10 Medical Decision Making MDM Narrative Medical decision making narrative: The patient was seen by previous providers and signed out to me at change of shift. He is now awake and alert and ambulatory and ate breakfast. He does seem to wish to go to drug treatment center where arrangements were made for him. He is provided drug treatment center information and is released in the care of his yahairazaynab. Differential Diagnosis Differential Diagnosis: substance abuse Lab Data Lab results reviewed: Yes I reviewed the patient's lab results Labs: Lab Results 04/01/23 04/01/23 Range/Units 19:15 19:30 WBC 10.4 (4.0-11.0) 10^3/uL RBC 5.34 (4.70-6.10) 10^6/uL Hgb 15.1 (14.0-18.0) g/dL Hct 45.9 (42.0-54.0) % MCV 86.0 (80.0-94.0) fL MCH 28.3 (25.9-34.0) pg MCHC 32.9 (29.9-35.2) g/dL RDW 13.7 (11.0-15.0) % Plt Count 381 (150-450) 10^3/uL MPV 10.1 (9.5-13.5) fL Neut % (Auto) 46.6 (43.0-75.0) % Lymph % (Auto) 29.2 (20.5-60.0) % [place] % (Auto) 11.2 (1.7-12.0) % Eos % (Auto) 11.0 H (0.9-7.0) % Baso % (Auto) 1.0 (0.2-2.0) % Neut # (Auto) 4.9 (1.4-6.5) 10^3/uL Lymph # (Auto) 3.1 (1.2-3.8) 10^3/uL [place] # (Auto) 1.2 H (0.3-0.8) 10^3/uL Eos # (Auto) 1.2 H (0.0-0.7) 10^3/uL Baso # (Auto) 0.1 (0.0-0.1) 10^3/uL Abs Immat Gran (auto) 0.10 H (0.00-0.03) 10^3/uL Imm/Tot Granulo (auto) 1.0 H (0.0-0.5) % Sodium 139 (136-145) mmol/L Potassium 4.9 (3.5-5.1) mmol/L Chloride 103 (98-107) mmol/L Carbon Dioxide 25.2 (21.0-32.0) mmol/L Anion Gap 15.7 BUN 24.0 H (7.0-18.0) mg/dL Creatinine 1.66 H (0.70-1.30) mg/dL Est GFR ( Amer) 56 L (>=60) Est GFR (Non-Af Amer) 46 L (>=60) BUN/Creatinine Ratio 14.5 Glucose 58 L (74-106) mg/dL Calcium 9.9 (8.5-10.1) mg/dL Total Bilirubin 0.6 (0.2-1.0) mg/dL AST 39 H (15-37) U/L ALT 46 (16-63) U/L Alkaline Phosphatase 76 (46-116) U/L Troponin I High Sens 12.1 (4.0-76.1) pg/mL Total Protein 8.2 (6.4-8.2) g/dL Albumin 3.9 (3.4-5.0) g/dL Globulin 4.3 g/dL Albumin/Globulin Ratio 0.9 Urine Color Yellow (YELLOW) Urine Clarity Clear (CLEAR) Urine pH 5.5 (5.0-9.0) Ur Specific [place] >=1.030 A (1.005-1.025) Urine Protein Trace (NEG/TRACE) mg/dL Urine Glucose (UA) Negative (NEGATIVE) mg/dL Urine Ketones Negative (NEGATIVE) mg/dL Urine Occult Blood Negative (NEGATIVE) Urine Nitrite Negative (NEGATIVE) Urine Bilirubin Negative (NEGATIVE) Urine Urobilinogen 0.2 (0.2-1.0) EU/dL Ur Leukocyte Esterase Negative (NEGATIVE) Urine Opiates Screen Negative (NEGATIVE) Ur Buprenorphine Scrn Negative (NEGATIVE) Ur Oxycodone Screen Positive A (NEGATIVE) Urine Methadone Screen Negative (NEGATIVE) Ur Propoxyphene Screen Negative (NEGATIVE) Ur Barbiturates Screen Negative (NEGATIVE) U Tricyclic Antidepress Negative (NEGATIVE) Ur Phencyclidine Scrn Negative (NEGATIVE) Ur Amphetamines Screen Negative (NEGATIVE) U Methamphetamines Scrn Negative (NEGATIVE) U Benzodiazepines Scrn Negative (NEGATIVE) Urine Cocaine Screen Positive A (NEGATIVE) U Cannabinoids Screen Negative (NEGATIVE) Ethanol Quant <3 mg/dL Discharge Plan Discharge Chief Complaint: Overdose Clinical Impression: Polysubstance abuse, Drug overdose Patient Disposition: Home, Self-Care Time of Disposition Decision: 09:44 Condition: Good Instructions: Polysubstance Use Disorder (ED) Stand Alone Forms: Portal Instructions Referrals: Physician,Non-Staff, MD [Primary Care Provider] - 1 week
== END 2023-04-02 10:49 | disposition home or self-care (01) ==
PROVIDERS: Nurse Practitioner Family; Emergency Provider Emergency Medicine
DX: T50.911A Poisoning by multiple unspecified drugs, medicaments and biological substances, accidental (unintentional), initial encounter (principal); F19.10 Other psychoactive substance abuse, uncomplicated; F17.210 Nicotine dependence, cigarettes, uncomplicated
CPT/HCPCS: 36415; 71045; 80053; 80307; 80320; 81003; 84484; 85025; 93005; 96372; 96374; 96375; 96376; 99285

== ENCOUNTER 2023-04-22 02:31 | Emergency (ER) | payer BC, SELFPAY ==
[2023-04-22 02:44] VITALS: BP 124/71; PULSE 77; RESP 20; TEMP 36.7; O2SAT 94; BMI 27.6
--- NOTE | 2023-04-22 03:01 | ED.OVERDOSE1 ---
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 Released from [facility] recovery last week. Brought in tonight by his girlfriend who believes he has been using fentanyl. He denies it and states he took Trazodone and that he also takes seroquel Related Data Home Medications Medication Instructions Recorded Confirmed escitalopram oxalate 10 mg tablet 10 mg PO DAILY 04/22/23 04/22/23 naltrexone 50 mg tablet 50 mg PO DAILY 04/22/23 04/22/23 trazodone 150 mg tablet 150 mg PO DAILY 04/22/23 04/22/23 Allergies Allergy/AdvReac Type Severity Reaction Status Date / Time No Known Drug Allergies Allergy Verified 04/22/23 02:49 Review of Systems ROS Status of ROS 10 or more systems reviewed and unremarkable except as noted in history and below PFSH PFSH Social History Smoking status: Never smoker Exam Constitutional Vital Signs, click to edit/add: Last Vital Signs Temp 98.1 F 04/22/23 02:44 Pulse 77 04/22/23 02:44 Resp 20 04/22/23 02:44 BP 124/71 H 04/22/23 02:44 Pulse Ox 94 L 04/22/23 02:44 O2 Del Method Room Air 04/22/23 02:44 Other: patient jerky and then nearly falls asleep and then wakes up again. confabulating when speaking and then fading out to nearly fall asleep and then jerks back awake HENMT Common normals: normocephalic and head/scalp atraumatic Eye Common normals: EOMs intact bilaterally and conjunctivae normal Respiratory Common normals: normal respiratory effort and no use of accessory muscles Cardio Common normals: regular rate and regular rhythm GI Common normals: non-tender Extremity Common normals: normal to inspection, full ROM and no joint enlargement Neuro Common normals: oriented x3 Psych Appearance: grossly normal Course Vital Signs Vital signs: Vital Signs Temperature 98.1 F 04/22/23 02:44 Pulse Rate 77 04/22/23 02:44 Respiratory Rate 20 04/22/23 02:44 Blood Pressure 124/71 H 04/22/23 02:44 Pulse Oximetry 94 L 04/22/23 02:44 Oxygen Delivery Method Room Air 04/22/23 02:44 Temperature 98.1 F 04/22/23 02:44 Pulse Rate 77 04/22/23 02:44 Respiratory Rate 20 04/22/23 02:44 Blood Pressure 124/71 H 04/22/23 02:44 Pulse Oximetry 94 L 04/22/23 02:44 Oxygen Delivery Method Room Air 04/22/23 02:44 MDM - Overdose MDM Narrative Medical decision making narrative: patient has past history of IVDA. Presented conscious but repeatedly fading out and nearly falling asleep before jerking back awake and trying to continue the conversation. Given dose of 0.4mg Narcan and this help him to relax whether than the back and forth he presented with above. Labd WNL including evidence of CKD . Patient did not give a urine sample but was requesting to leave and his girlfriend felt he could also go home in her care. Discharged to follow up with his doctor Discharge Plan Discharge Chief Complaint: Overdose Clinical Impression: Substance use disorder Patient Disposition: Home, Self-Care Prescriptions / Home Meds: No Action escitalopram oxalate 10 mg tablet 10 mg PO DAILY naltrexone 50 mg tablet 50 mg PO DAILY Rx Instructions: 1-2 tablets trazodone 150 mg tablet 150 mg PO DAILY Instructions: Opioid Use Disorder (ED) Additional Instructions: follow up with your family doctor later this week or early next week Stand Alone Forms: Portal Instructions Referrals: Physician,Non-Staff, MD [Primary Care Provider] - 1 week
[2023-04-22] MEDS: NALOXONE HCL 0.4 MG/ML VIAL (03:04)
[2023-04-22 03:43] LABS: Alanine Aminotransferase 35 U/L (16-63); Albumin Globulin Ratio 1.1; Albumin Level 3.3 g/dL (3.4-5.0); Alkaline Phosphatase 65 U/L (46-116); Aspartate Amino Transferase 35 U/L (15-37); BUN Creatinine Ratio 21.9; Bilirubin Total 0.5 mg/dL (0.2-1.0); Calcium 8.2 mg/dL (8.5-10.1); Carbon Dioxide 26.4 mmol/L (21.0-32.0); Chloride 104 mmol/L (98-107); Estimated GFR (African America >60 (>=60); Estimated GFR (Non-African Ame 58 (>=60); Glucose 84 mg/dL (74-106); Potassium 4.4 mmol/L (3.5-5.1); Sodium 138 mmol/L (136-145); Total Protein 6.3 g/dL (6.4-8.2)
[2023-04-22 04:03] LABS: Hematocrit 38.4 % (42.0-54.0); Hemoglobin 12.8 g/dL (14.0-18.0); Mean Corpuscular HGB Conc 33.3 g/dL (29.9-35.2); Mean Corpuscular Hemoglobin 28.6 pg (25.9-34.0); Mean Corpuscular Volume 85.9 fL (80.0-94.0); Mean Platelet Volume 9.7 fL (9.5-13.5); Platelet Count 262 10^3/uL (150-450); Red Blood Count 4.47 10^6/uL (4.70-6.10); Red Cell Distribution Width 42.4 % (11.0-15.0); White Blood Count 4.8 10^3/uL (4.0-11.0)
[2023-04-22 04:05] LABS: Lymphocytes Percent Auto 23.4 % (20.5-60.0); Neutrophils Percent Auto 60.6 % (43.0-75.0)
[2023-04-22 04:06] LABS: Lymphocytes Absolute Auto 1.1 10^3/uL (1.2-3.8); Monocytes Absolute Auto 0.8 10^3/uL (0.3-0.8); Neutrophils Absolute Auto 2.9 10^3/uL (1.4-6.5)
== END 2023-04-22 05:31 | disposition home or self-care (01) ==
PROVIDERS: Emergency Provider Internal Medicine
DX: F19.90 Other psychoactive substance use, unspecified, uncomplicated (principal); Z79.899 Other long term (current) drug therapy
CPT/HCPCS: 36415; 80053; 80307; 85025; 99284

== ENCOUNTER 2023-05-13 17:48 | Emergency (ER) | payer BC, SELFPAY ==
[2023-05-13 17:51] VITALS: BP 146/85; PULSE 90; RESP 16; TEMP 36.5; O2SAT 95; BMI 28.5
--- NOTE | 2023-05-13 18:02 | US_ITS ---
The [address] [address] Patient Name: PHILIPP BROWN MRN: [id number] date: 1980 Sex: M Assigned Patient Location: ER Current Patient Location: ED.MAIN Accession/Order Number: [id number] Exam Date: 05/13/2023 18:10 Report Date: 05/13/2023 19:51 At the request of: SIERRA NIXON Procedure: US venous doppler LE LT EXAM: US venous doppler LE LT HISTORY: DVT COMPARISON: None. TECHNIQUE: Ultrasonography of the left lower extremity is performed from the groin to the calf. A single internet sales representative image of the right iliac vein is performed. FINDINGS: The deep venous structures demonstrate normal compressibility. There is no intraluminal thrombus. Normal color Doppler images with spectral waveforms. Limited scanning in the region of clinical symptoms and history so discrete abnormality. US/US venous doppler LE LT IMPRESSION: No evidence for deep venous thrombosis. Electronically authenticated by: MARCELO CHOU Date: 05/13/2023 19:51
--- NOTE | 2023-05-13 18:53 | ED_ITS ---
HPI - Extremity Problem General Chief complaint: Extremity Problem, Nontraumatic Stated complaint: BLOOD CLOT LEFT LEG Time Seen by Provider: 05/13/23 18:01 Source: patient Mode of arrival: walk-in History of Present Illness HPI Narrative: patient is a 42-year-old male who presents to the emergency department essentially for 2nd opinion of his left lower extremity. He was at the [place] emergency Department last night for redness and pain in the front of his leg for the last several days. He denies any injury or trauma. No fevers or vomiting. No history of diabetes. He states the [place] emergency Department last night did blood work and scheduled him for an outpatient ultrasound and gave him one dose of Eliquis. He was not discharged home with any prescriptions. He states he was not able to have the ultrasound for two weeks and was concerned because the emergency department physician made him feel as though this should be an emergent imaging study. he states he does not feel as though he received adequate care . Related Data Home Medications Medication Instructions Recorded Confirmed escitalopram oxalate 10 mg tablet 10 mg PO DAILY 04/22/23 04/22/23 naltrexone 50 mg tablet 50 mg PO DAILY 04/22/23 04/22/23 trazodone 150 mg tablet 150 mg PO DAILY 04/22/23 04/22/23 Previous Rx's Medication Instructions Recorded cephalexin 500 mg capsule 500 mg PO Q8H 10 days #30 caps 05/13/23 ketorolac 10 mg tablet 10 mg PO TID PRN pain #10 tabs 05/13/23 Allergies Allergy/AdvReac Type Severity Reaction Status Date / Time No Known Drug Allergies Allergy Verified 05/13/23 17:58 Review of Systems ROS Constitutional Denies: fever or chills Ears, nose, mouth, and throat Denies: throat pain Cardiovascular Denies: chest pain Respiratory Denies: shortness of breath Gastrointestinal Denies: nausea or vomiting Genitourinary Denies: painful urination Musculoskeletal Reports: extremity pain; Denies: back pain or neck pain Integumentary/Breast Denies: rash Neurological Denies: headache PFSH PFSH Social History Smoking status: Never smoker Exam Narrative Exam Narrative: Gen.: Awake, alert, in no distress Head: Normocephalic, atraumatic ENT: Moist mucous membranes Respiratory: No respiratory distress Extremities: Moves extremities equally, left anterior crum with a small area of faint erythema, skin marker overlying the area. There is no erythema noted to the posterior calf, calves are soft and nontender. No circumferential erythema noted. No open wounds or drainage Psych: Normal mood and affect Neuro: No focal neuro deficit Skin: Warm, dry, intact Constitutional Vital Signs, click to edit/add: Last Vital Signs Temp 97.7 F 05/13/23 17:51 Pulse 90 05/13/23 17:51 Resp 16 05/13/23 17:51 BP 146/85 H 05/13/23 17:51 Pulse Ox 95 05/13/23 17:51 O2 Del Method Room Air 05/13/23 17:51 Course Vital Signs Vital signs: Vital Signs Temperature 97.7 F 05/13/23 17:51 Pulse Rate 90 05/13/23 17:51 Respiratory Rate 16 05/13/23 17:51 Blood Pressure 146/85 H 05/13/23 17:51 Pulse Oximetry 95 05/13/23 17:51 Oxygen Delivery Method Room Air 05/13/23 17:51 Temperature 97.7 F 05/13/23 17:51 Pulse Rate 90 05/13/23 17:51 Respiratory Rate 16 05/13/23 17:51 Blood Pressure 146/85 H 05/13/23 17:51 Pulse Oximetry 95 05/13/23 17:51 Oxygen Delivery Method Room Air 05/13/23 17:51 MDM - Extremity (Nontraumatic) MDM Narrative Medical decision making narrative: venous ultrasound of the left lower extremity with no evidence of deep vein thrombosis. No further indication for anticoagulation. Patient will be treated for possible early cellulitis although the area may be consistent with faint bruising. He was reevaluated by attending physician prior to discharge. He is e ncouraged to elevate the leg. Cellulitis instructions given for home. Keflex and anti-inflammatories. Return to the Emergency Room if symptoms change or worsen. Patient is neurovascularly intact at discharge. Discharge Plan Discharge Chief Complaint: Extremity Problem, Nontraumatic Clinical Impression: Cellulitis of left leg Patient Disposition: Home, Self-Care Time of Disposition Decision: 18:51 Condition: Good Prescriptions / Home Meds: New ketorolac 10 mg tablet 10 mg PO TID PRN (Reason: pain) Qty: 10 0RF cephalexin 500 mg capsule 500 mg PO Q8H 10 Days Qty: 30 0RF No Action escitalopram oxalate 10 mg tablet 10 mg PO DAILY naltrexone 50 mg tablet 50 mg PO DAILY Rx Instructions: 1-2 tablets trazodone 150 mg tablet 150 mg PO DAILY Instructions: Cellulitis (ED) Stand Alone Forms: Portal Instructions Referrals: TAMIE LAWRENCE APRN [Primary Care Provider] - 1 week
== END 2023-05-13 18:56 | disposition home or self-care (01) ==
PROVIDERS: Emergency Provider Emergency Medicine; PCP Nurse Practitioner Primary Care
DX: L03.116 Cellulitis of left lower limb (principal); Z79.899 Other long term (current) drug therapy
CPT/HCPCS: 93971; 99284